=== PATIENT | male | born 1990 | race African-American/Black ===

== ENCOUNTER 2017-08-04 09:11 | Emergency (ER) | payer SELFPAY ==
[~2017-08-04] VITALS: Ht 175.3 cm; Wt 77.3 kg
[2017-08-04 11:15] VITALS: BP 134/75
== END 2017-08-04 11:30 | disposition home or self-care (01) ==
LOC: EMS 09:13
DX: S83.92XA Sprain of unspecified site of left knee, initial encounter (principal); X50.1XXA Overexertion from prolonged static or awkward postures, initial encounter; Y93.89 Activity, other specified; Y92.89 Other specified places as the place of occurrence of the external cause; Y99.8 Other external cause status
CPT/HCPCS: 99284